=== PATIENT | female | born 1970 | race Caucasian/White ===

== ENCOUNTER 2018-03-28 10:00 | Day surgery (SDC) | payer OTHER ==
[2018-03-25 08:27] VITALS: BMI 22.3
[~2018-03-28 10:00] MED LIST: LACTATED RINGERS 1,000 ML IV SCH
[2018-03-28] MEDS ORDERED: LIDOCAINE 1% 20 ML VIAL (10MG/ML) FOR IV START INTRADERMA ONE (10:39)
[2018-03-28 10:49] VITALS: TEMP 98.2
[2018-03-28] MEDS ORDERED: GLUCAGON 1 MG/ML VIAL ONE (11:32)
[2018-03-28] MEDS ORDERED: PROPOFOL 10 MG/ML 20 ML VIAL IV ONE (11:32)
[2018-03-28] MEDS ORDERED: LIDOCAINE 1% INJ 10MG/ML (20 ML MDV) ONE (11:32)
--- NOTE | 2018-03-28 11:34 | P.GSHP ---
History of Present Illness H&P Date: 03/28/18 Chief Complaint: Screening colonoscopy This a 48-year-old female referred from Dr. Polly Gonzalez. Patient presents today for screening colonoscopy. She denies a significant GI complaints. Past Medical History Past Medical History: No Reported History History of Any Multi-Drug Resistant Organisms: None Reported Past Surgical History: Hysterectomy, Uterine Ablation Past Anesthesia/Blood Transfusion Reactions: No Reported Reaction, Family History of Problems w/ Anesthesia Additional Past Anesthesia/Blood Transfusion Reaction / Comment(s): sister very slow to wake up Smoking Status: Never smoker - Past Family History Mother Family Medical History: No Reported History Medications and Allergies Home Medications Medication Instructions Recorded Confirmed Type Ascorbic Acid [Vitamin C] 500 mg PO DAILY 03/25/18 03/28/18 History Allergies Allergy/AdvReac Type Severity Reaction Status Date / Time No Known Allergies Allergy Verified 03/28/18 10:36 Surgical - Exam Vital Signs Temp Pulse Resp BP Pulse Ox 98.2 F 71 16 128/67 100 03/28/18 10:47 03/28/18 10:47 03/28/18 10:47 03/28/18 10:47 03/28/18 10:47 - General well developed, no distress - Eyes PERRL - ENT normal pinna - Neck no masses - Respiratory normal expansion - Cardiovascular Rhythm: regular - Abdomen Abdomen: soft, non tender Assessment and Plan Assessment: We'll perform screening colonoscopy.
--- NOTE | 2018-03-28 12:04 | P.OP ---
Date of Procedure: 03/28/18 Preoperative Diagnosis: Screening colonoscopy Postoperative Diagnosis: Diverticulosis Procedure(s) Performed: Colonoscopy Anesthesia: MAC Surgeon: Amor Becerra Pathology: none sent Condition: stable Disposition: PACU Description of Procedure: The patient's placed on the endoscopy table in the lateral position. She received IV sedation. Digital rectal exam was performed which revealed no abnormalities. Flexible colonoscope was then placed patient anus passed throughout the colon. The scope could not be placed into the right colon. Several times made to maneuver the colonoscope however this a possible. At this point the colonoscope was withdrawn and a pediatric loss scope was placed in the colon. The pediatric loss (placed the right colon. This point scope withdrawn. The transverse colon appeared normal. In the descending; was mild diverticular changes. Scope was then brought back the rectum and this appeared normal. Scope was withdrawn for patient. Patient was scheduled for a barium enema.
[2018-03-28 12:19] VITALS: BP 114/72; PULSE 71; RESP 18
--- NOTE | 2018-03-28 16:14 | XR ---
Abdomen HISTORY: Incomplete colonoscopy Frontal view of the abdomen submitted. Air-filled loops of small bowel and large bowel are noted. No evident bowel obstruction or pneumoperi toneum. Lung bases not included on exam. IMPRESSION: Post colonoscopy.
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
== END 2018-03-28 13:23 | disposition home or self-care (01) ==
LOC: ORWHC2ENDO 10:00
PROVIDERS: ATTEND Surgery
DX: Z12.11 Encounter for screening for malignant neoplasm of colon (principal); K57.30 Diverticulosis of large intestine without perforation or abscess without bleeding; Q43.8 Other specified congenital malformations of intestine
CPT/HCPCS: 74018; J1610; J2001; J2704; G0121; 45378; 74270

== ENCOUNTER → 2021-01-02 | Outpatient (CLI) | payer MEDICAID ==
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
== END | disposition home or self-care (01) ==
LOC: RADCTMAIN 16:23
PROVIDERS: ATTEND Family Medicine
DX: R22.1 Localized swelling, mass and lump, neck (principal)
CPT/HCPCS: 70491; Q9967